=== PATIENT | male | born 1960 | race African-American/Black ===

== ENCOUNTER 2017-04-01 16:03 | Emergency (ER) | payer MEDICAID ==
[~2017-04-01] VITALS: Ht 157.5 cm; Wt 55.0 kg
[2017-04-01 16:26] VITALS: BP 107/71
[2017-04-02] MEDS ORDERED: LOSA25TA12 PO (19:41)
[2017-04-02] MEDS ORDERED: FURO-151 PO (19:41)
[2017-04-02] MEDS ORDERED: QUET100T PO (19:41)
[2017-04-02] MEDS ORDERED: COR3 PO (19:41)
[2017-04-02] MEDS ORDERED: PHEN100C4 PO (19:41)
== END 2017-04-01 20:00 | disposition left against medical advice (07) ==
LOC: ER 19:35
DX: R06.02 Shortness of breath (principal); Z53.21 Procedure and treatment not carried out due to patient leaving prior to being seen by health care provider